=== PATIENT | male | born 1980 | race Caucasian/White ===

== ENCOUNTER 2021-11-26 17:27 | Emergency (ER) | payer SELFPAY ==
--- NOTE | ~2021-11-26 | XR_ITS ---
EXAMINATION: XR KNEE, RIGHT CLINICAL INFORMATION: Status post fall. COMPARISON: None TECHNIQUE: Four views of the right knee. FINDINGS: Subtle periosteal reaction is noted at upper lateral tibial metaphysis, indeterminate etiology. The bony alignments are intact. The cortices are intact. Articular margins, joint space appear unremarkable. The soft tissues are unremarkable. XR/XR knee RT 3V IMPRESSION: 1. No radiographic evidence of any acute fracture, subluxation or dislocation or joint effusion identified. 2. Incidental note is made of subtle periosteal reaction involving the upper lateral tibial metaphysis, of indeterminate etiology.
[2021-11-26 17:36] VITALS: BMI 27.8
--- NOTE | 2021-11-26 17:41 | ED.LOWEXIN ---
HPI - Extremity Injury (Lower) General Chief Complaint: Fall Stated Complaint: RIGHT KNEE INJURY Time Seen by Provider: 11/26/21 17:41 Source: patient Mode of arrival: EMS Limitations: no limitations History of Present Illness HPI Narrative: Patient apparently jumping on the trampoline came down very hard on the right knee felt something pop unable to ambulate felt patella on the right side which he moved to the middle no other injuries Related Data Previous Rx's Medication Instructions Recorded oxycodone-acetaminophen 5 mg-325 1 tab PO Q6H PRN #20 tab 11/26/21 mg tablet (Percocet) Allergies Allergy/AdvReac Type Severity Reaction Status Date / Time No Known Allergies Allergy Verified 11/26/21 17:42 Review of Systems Review of Systems: Yes all other systems are reviewed and are negative [facility] Social History Social History Advance Directives: No Advance Directives Information Provided: No Physical Exam Vital Signs: Vital Signs: BMI result Body Mass Index 27.8 Const: General: healthy appearing and in distress HEENT: Head: Yes normocephalic and Yes atraumatic Neck: Neck: Yes full ROM and No tender Chest: Chest palpation & inspection: normal inspection of the chest and normal palpation of entire chest wall Resp: Effort & Inspection: normal respiratory effort Auscultation: clear to auscultation bilaterally Cardio: Rhythm: regular rhythm Heart sounds: S1 normal heart sound present and S2 normal heart sound present GI: Inspection: Yes normal to inspection Palpation (GI): Soft to palpation Extrem: Right lower extremity: knee (Soft tissue swelling inferior to patella with soft tissue gap and tendernes) Details: other (Unable to do right knee extension) Knee images: 1. Focal tenderness about 2 cm distal to patellar tendon insertion with a gap feeling suggestive of patellar tendon rupture MDM - Extremity Injury (Lower) MDM Narrative Medical decision making narrative: Patient clinically with patellar tendon rupture case discussed orthopedics will schedule patient for outpatient surgery on 11/29 patient lives in [place] for prefer to have surgery in [place] Procedures Orthopedic Splinting/Casting Injury #1: Side: right Lower Extremity Injury Location: knee Lower Extremity Immobilizer: knee immobilizer Other Orthopedic Equipment: crutches Discharge Plan Discharge Clinical Impression: Rupture of right patellar tendon Patient Disposition: Home, Self-Care Instructions: Patella Tendon Repair (DC), Tendon Rupture (ED) Additional Instructions: Rest, Ice, Compression, Elevation (RICE therapy); analgesics; non-weightbearing Follow-up with orthopedics Use crutches for ambulation and wear knee brace until seen by orthopedic Prescriptions: New oxycodone-acetaminophen [Percocet] 5-325 mg tablet 1 tab PO Q6H PRN (Reason: pain) Qty: 20 0RF Referrals: Farzad Garcia MD [Physician] - 5 days Interventions: ED Discharge Assessment Last Done: 11/26/21 19:58 Discharge Date/Time: 11/26/21 19:58
--- NOTE | 2021-11-26 19:10 | PC.NURSE ---
Took report hermes Fournier to assume care of Pt, no apparent distress at this time, this RN continues to moniitor.
[2021-11-26] MEDS: oxyCODONE HCl Immed Release 5 MG TABLET 10 MG PO (19:20)
== END 2021-11-26 19:58 | disposition home or self-care (01) ==
PROVIDERS: Emergency Provider Internal Medicine
DX: S76.111A Strain of right quadriceps muscle, fascia and tendon, initial encounter (principal); X50.1XXA Overexertion from prolonged static or awkward postures, initial encounter; Y93.44 Activity, trampolining; Y92.9 Unspecified place or not applicable; Y99.9 Unspecified external cause status
CPT/HCPCS: 73562; 99283